=== PATIENT | female | born 1950 | race Caucasian/White ===

== ENCOUNTER 2016-06-23 06:06 | Inpatient (IN) ==
[2016-06-23] MEDS ORDERED: CeFAZolin Pre 3,000 MG/100 ML 3,000 MG/100 ML BAG IVPB ONE (06:42)
[2016-06-23] MEDS ORDERED: Lidocaine 1% 20 ML MDV ID ONE (06:42)
[2016-06-23] MEDS ORDERED: Albuterol 2.5 MG/3 ML NEBULIZER IH ONE (06:44)
[2016-06-23] MEDS ORDERED: Ringers Solution, Lactated 1,000 ML IVC SCH ×2 (06:45→08:30)
[2016-06-23] MEDS ORDERED: *HR* FentaNYL (PF) 100 MCG/2 ML VIAL ONE (07:24)
[2016-06-23] MEDS ORDERED: *HR* Propofol 200 MG/20 ML VIAL IVP ONE ×2 (07:25→07:26)
[2016-06-23] MEDS ORDERED: *HR* Midazolam HCl 2 MG/2 ML VIAL ONE (07:25)
--- NOTE | 2016-06-23 07:26 | Anesthesia Evaluation PreOp ---
Date of Encounter: 06/23/16 Time of Encounter: 07:23 - Past History Planned Operation: ACDF C$-6 Cardiac History: HTN Pulmonary History: Asthma INSPECTOR OF WEIGHTS AND MEASURES History: Denies Any Significant HX Other Medical History: Hepatic (HepA), Diabetes Type II, GERD, Other (BMI 48) Anesthesia History: No Prior Anesthetic Complications, Past Anesthesia (back sx , hysterectomy, LIH, elvira TKR, R breast, EGD) Alcohol Use: rarely Drug use: none Medications and Allergies Atenolol [Tenormin] 50 mg PO DAILY 06/23/16 [History] FLUoxetine HCl [Prozac] 40 mg PO DAILY 06/23/16 [History] Fluticasone Propionate Nasal [Flonase] 1 spray NS DAILY 06/23/16 [History] Gabapentin [Neurontin] 300 mg PO TID 06/23/16 [History] Lisinopril/Hydrochlorothiazide [Zestoretic 20-12.5 mg Tablet] 1 each PO DAILY [History] Loperamide [Imodium] 2 mg PO DAILY PRN 06/23/16 [History] Loratadine [Claritin] 10 mg PO DAILY 06/23/16 [History] Metformin HCl [Glucophage] 1,000 mg PO BID 06/23/16 [History] Nitrofurantoin (BID) [Macrobid] 100 mg PO DAILY 06/23/16 [History] Omeprazole [PriLOSEC] 20 mg PO DAILY 06/23/16 [History] Pravastatin Sodium [Pravachol] 20 mg PO DAILY 06/23/16 [History] Primidone [Mysoline] 50 mg PO HS 06/23/16 [History] Tiotropium [Spiriva] 18 mcg IH DAILY 06/23/16 [History] TraZODone 50 mg PO HS 06/23/16 [History] Allergies pentazocine [From Talwin] Allergy (Verified 06/23/16 06:34) Hypotension - Meds/Allergy Pre-op Review Medications Reviewed: Yes Allergies Reviewed: Yes Beta Blockers on Current Med List: Yes ( ) Anesthesia Results - Labs Laboratory Tests 06/14/16 12:08 PT 11.5 INR 1.1 APTT 30.8 - Imaging EKG: report reviewed (SR, probable old anterior IL) Anesthesia Exam O2 Sat Height 1.63 m Height 1.63 m Height 1.63 m Weight 127.459 kg Weight 127.459 kg Weight 127.459 kg O2 Sat by Pulse Oximetry 93 Vital Signs Temp Pulse Resp BP Pulse Ox 98.2 F 106 18 130/73 93 L 06/23/16 06:37 06/23/16 06:37 06/23/16 06:37 06/23/16 06:37 06/23/16 06:37 - HEENT Pupil (Motor): Pupils equal, EOMI Mallampati: III (neck short and thick secondary to obesity) Teeth: Normal Oral Opening: Greater than 3 - INSPECTOR OF WEIGHTS AND MEASURES LOC: Oriented INSPECTOR OF WEIGHTS AND MEASURES Motor: Normal RUE, Normal LUE, Normal RLE, Normal LLE, Normal Face INSPECTOR OF WEIGHTS AND MEASURES Sensory: Normal: RUE, LUE, RLE, LLE, Face - Cardiac Rhythm: Regular - Pulmonary Breath Sounds: bilateral Clear Respiratory Effort: Symmetrical Anesthesia Assess/Plan ASA Score: 3 (HTN, DM, asthma, BMI 48) Anesthetic Plan: General (GETA elective glidescope, r/b/a dsicussed, questions answered, consent obtained) Monitoring Plan: Standard Monitors Recovery Plan: PACU
[2016-06-23] MEDS ORDERED: *HR* Remifentanil 1 MG VIAL IVP ONE ×2 (07:33)
[2016-06-23] MEDS ORDERED: *HR* Succinylcholine 200 MG/10 ML VIAL IVP ONE (07:35)
[2016-06-23] MEDS ORDERED: Dexamethasone 4 MG/ML VIAL ONE (07:35)
[2016-06-23] MEDS ORDERED: Lidocaine -MPF 2% 2 ML VIAL ONE (07:35)
[2016-06-23] MEDS ORDERED: Ondansetron 4 MG/2 ML VIAL ONE (07:35)
[2016-06-23] MEDS ORDERED: *HR* Rocuronium Bromide 50 MG/5 ML VIAL ONE (07:35)
--- NOTE | 2016-06-23 07:39 | History & Physical Report ---
Date of Encounter: 06/23/16 Time of Encounter: 07:35 24 Hour HP Update - Instructions Instructions: If the History and Physical is less than 30 days old and was completed prior to A.M. admission and or procedure and has NOT been updated on calendar day of procedure please complete this update prior to performing procedure. - Update Patient reports changes in Medical Condition: No Changes in assessment/condition: No Changes in Medication: No Preop tests/diagnostics Reviewed: Yes Pre-Op MRSA Screen: Negative Surgery Remains Indicated: Yes Consent for Planned Operative Procedure(s) Verified: Yes - Pre-Operative Checklist Preoperative Checklist Indicated: No Prophylactic Antibiotic Ordered: Yes Home Medications Include Beta Alyssa: Yes Beta Alyssa Taken Today (Day of Surgery): No Beta Alyssa Taken Yesterday (Day Prior to Surgery): Yes Is VTE Prophylaxis Indicated?: Yes
[2016-06-23] MEDS ORDERED: *HR* Phenylephrine 10 MG/ML VIAL ONE (08:00)
[2016-06-23] MEDS ORDERED: *HR* Meperidine 25 MG/ML SYRINGE IVP PRN (08:27)
[2016-06-23] MEDS ORDERED: Ondansetron 4 MG/2 ML VIAL IVP ONE (08:27)
[2016-06-23] MEDS ORDERED: *HR* Labetalol 100 MG/20 ML MDV IVP PRN (08:27)
[2016-06-23] MEDS ORDERED: *HR* Promethazine 25 MG/ML VIAL IVP PRN (08:27)
[2016-06-23] MEDS ORDERED: Levalbuterol Neb 1.25 MG/3 ML IH ONE (10:00)
--- NOTE | 2016-06-23 10:26 | Orthopedic Operative Note ---
Date of procedure: 06/23/16 Pre-op diagnosis: Cervical stenosis, cervical radiculopathy, focal motor deficit Post-op diagnosis: same Operation/Findings: Anterior cervical decompression and fusion C4-C6:The patient was brought to the operating room and placed supine on the operating room table. Successful general endotracheal anesthesia intubation was performed. Neurophysiologic monitoring personnel placed leads on the upper and lower extremities as well as the cranium for EMG monitoring purposes. Appropriate baseline potentials were noted by the neurophysiologic monitoring staff. Flores catheter was placed prior to positioning. Compression boots and stockings were placed for deep vein thrombosis prophylaxis, Padding was also placed all bony prominences including the ulnar nerve near the medial epicondyles of the elbows were appropriately padded. Mild traction was placed on the bilateral shoulders and taped into place. Preoperative antibiotics were administered. The area from the mandible bilaterally to the upper thoraces was prepped and draped in the usual sterile fashion. A transverse incision was made at the level of the cricoid cartilage which is approximately 3 cm in length and extended from the midline of the cervical spine laterally towards the sternocleidomastoid muscle on the left. We then performed standard medial approach to the carotid sheath. Sponges were used to tease the fascial medial to the sternocleidomastoid muscle while carefully controlling and palpating the carotid artery. Using careful dissection we were able to get to the level of the anterior vertebral bodies and longus colli muscles. The spinal needle was placed at the appropriate C5-6 level, and intraoperative radiograph was obtained which was a cervical spine lateral radiograph. The needle and radiograph confirmed we were at the correct C5-6 operative level. We further exposed this level by using Bovie cautery under the medial edge of the longus colli muscles to allow them to be retracted approximately 2 mm laterally on each side. An 11 blade was used to perform anterior discectomy at the appropriate C5-6 level after an initial annulotomy of the anterior longitudinal ligament and annulus was performed. Further disc material was removed with pituitary Rongeurs. Subsequently, Synthes pins were placed at the C5 and C6 vertebral bodies respectively to provide distraction. We then used a Trimline cervical retractor which was placed in both medial and lateral as well as inferior superior direction to allow full visualization of the appropriate disc and vertebral bodies. The Leica microscope was brought to the field and the remainder of the procedure was performed under the guidance of this microscope. Using pituitary rongeurs and small curettes, various micro-instruments, a full discectomy was performed at the appropriate C5-6 level. The posterior longitudinal ligament was encountered and appeared partially calcified. A portion of this ligament was removed. After complete and thorough discectomy and removal of spondylitic material was performed the endplates of the C5 and C6 vertebral bodies were prepared with a bur until allow bleeding of cancellous bone. A 8mm trial graft was evaluated and appeared to fit quite well within the excised C5-6 disc space. A cortico-cancellous allograft of 8 mm was utilized, carefully tapped into place within the excised disc space with the aid of a bone tamp. It was seated approximately 2 mm from the anterior edge of the cortex of the adjacent C5 and C6 vertebral bodies. We then turned our attention to the C4-5 level where a similar series of procedures was performed including discectomy, removal of spondylitic material, end plate preparation, and trial graftnig. A 7mmmm trial fit well within the C4-5 disc space. A 7mm allograft was then placed at C4-5. A 42.5 mm cervical plate was then placed on the anterior aspect of the C4, C5, and C6 vertebral bodies. The plate was placed in the midline position after drilling six 13 mm self tapping screws and inserting them. They were locked in place using standard Venture plate maneuvers. At this point a lateral radiograph of the cervical spine was obtained and showed satisfactory position of the graft and plate. The wound was copiously irrigated and bleeders encountered were cauterized using Bovie cautery. Platysma was closed with interrupted 2-0 Vicryl sutures. Running 3-0 Monocryl suture was used for skin closure. Sterile dressing was placed over the neck wound. A cervical collar was placed. The patient was transferred to a hospital bed and extubated. The patient was noted to be fully motor and sensory intact in the recovery room at the end of the procedure. The medications. All sponge instrument and needle counts were correct at the end of the procedure. Anesthesia: GETA Surgeon: Angel De Guzman Jr Estimated blood loss (cc): 50 Condition: stable Disposition: PACU
[2016-06-23] MEDS: *HR* HYDROmorphone (PF) 1 MG/ML SYRINGE IVP PRN ×2 (10:59→11:28)
--- NOTE | 2016-06-23 12:20 | Anesthesia Evaluation Post Op ---
Date of Encounter: 06/23/16 Time of Encounter: 12:05 - Vital Signs Vital Signs: Vital Signs/O2 Sat/Glucose, Most Current Temp Pulse Resp BP Pulse Ox 06/23/16 12:10 97.9 F 100 20 154/83 98 06/23/16 11:55 97.9 F 101 20 147/80 93 L 06/23/16 11:45 101 20 160/91 93 L 06/23/16 11:35 97.6 F 102 20 158/85 93 L 06/23/16 11:25 104 20 172/97 93 L 06/23/16 11:15 100 20 175/96 93 L 06/23/16 11:05 97.7 F 102 20 163/102 97 06/23/16 10:55 102 20 169/93 95 06/23/16 10:45 109 20 160/92 97 06/23/16 10:35 97.8 F 103 24 137/88 95 - Lungs Lungs: Clear Ascult./Percussion - Airway Airway: Non-obstructed - Cardiovascular Regular Rate - Mental Status Mental Status: Alert & Oriented, Answers Appropriately - Pain Pain Scale: 0 - Nausea Vomiting Nausea Vomiting: Not Present - Hydration Hydration: Ice chips - Discharge PostOp Status: Transfer Patient to floor
[2016-06-23] MEDS: *HR* Metformin 500 MG TABLET PO SCH (17:20)
[2016-06-23] MEDS ORDERED: *HR* Morphine 2 MG/ML SYRINGE IVP PRN (18:12)
[2016-06-23] MEDS: *HR* OxyCODONE Immed Rel 5 MG TABLET PO PRN (18:19)
[2016-06-23] MEDS: ceFAZolin 3,000 MG in D5% in Water 100 ML IVPB SCH (20:23)
[2016-06-23] MEDS: Primidone 50 MG TABLET PO SCH (20:24)
[2016-06-23] MEDS: traZODone 50 MG TABLET PO SCH (20:24)
[2016-06-23] MEDS: Lisinopril-HCTZ 20-12.5mg TABLET PO SCH (20:24)
[2016-06-24] MEDS ORDERED: ceFAZolin 2,000 MG in D5% in Water 100 ML IVPB SCH
[2016-06-24] MEDS: ceFAZolin 3,000 MG in D5% in Water 100 ML IVPB SCH (03:05)
[2016-06-24] MEDS: Tiotropium 18 MCG inhalation IH SCH (08:25)
[2016-06-24] MEDS: *HR* Metformin 500 MG TABLET PO SCH ×2 (08:36→16:29)
[2016-06-24] MEDS: Nitrofurantoin (BID) 100 MG CAPSULE PO SCH (08:37)
[2016-06-24] MEDS: FLUoxetine 20 MG CAPSULE PO SCH (08:37)
[2016-06-24] MEDS: Lisinopril-HCTZ 20-12.5mg TABLET PO SCH ×2 (08:37→20:57)
[2016-06-24] MEDS: Loratadine 10 MG TABLET PO SCH (08:37)
[2016-06-24] MEDS: Fluticasone Propionate Nasal 50 MCG/SPRAY BOTTLE NS SCH (08:38)
[2016-06-24] MEDS ORDERED: Ringers Solution, Lactated 1,000 ML ONE (11:45)
[2016-06-24] MEDS: Ringers Solution, Lactated 1,000 ML IVC SCH (12:14)
--- NOTE | 2016-06-24 13:04 | Spine Progress Note ---
Date of Encounter: 06/24/16 Time of Encounter: 13:01 Subjective Principal diagnosis: Cervical stenosis, cervical radiculopathy Interval history: The patient is without complaints. Poorly mobilizing. Afebrile vital signs are stable. Incision is clean dry and intact. Neurovascularly intact with regard to bilateral upper extremities. Fires all upper and lower extremity motor groups. Assessment :stable. Plan mobilize ,continue analgesics, discharge planning, obtain x ray, may need rehabilitation. Objective Vital signs: Vital Signs Temp Pulse Resp BP Pulse Ox 06/24/16 12:15 92/52 06/24/16 11:12 97.8 F 87 18 93 L 06/24/16 08:25 11 96 06/24/16 07:41 99.6 F 102 18 107/68 90 L 06/24/16 01:20 93 L 06/24/16 00:00 97.7 F 99 17 124/67 93 L 06/23/16 20:00 97.9 F 95 18 147/79 92 L 06/23/16 15:14 97.7 F 93 16 130/80 91 L 06/23/16 13:30 98.5 F 98 16 136/72 95 Intake and Output 06/23/16 06/24/16 06/24/16 23:59 07:59 15:59 Intake Total 400 / 400 20 / 20 Output Total 500 / 500 950 / 950 Balance -100 / -100 -950 / -950 20 / 20 Intake: IV Fluids 100 / 100 Ancef 3,000 MG In 100 / 100 Dextrose 5% 100 ML @ 200 mls/hr IVPB Q8H [facility] Rx#: [id number] Oral 300 / 300 20 / 20 Output: Urine 950 / 950 Urethral (Flores) 950 / 950 Catheter 500 / 500 Other: Blood Glucose* 132 174 137 - Labs Labs: Abnormal lab results POC Glucose 132 (58-89) H 06/23/16 20:26 Consult Discharge Plan - Plan Referrals: Elvi Chester CNP [Primary Care Provider] -
[2016-06-24] MEDS: Primidone 50 MG TABLET PO SCH (20:56)
[2016-06-24] MEDS: traZODone 50 MG TABLET PO SCH (20:57)
[2016-06-24] MEDS: *HR* OxyCODONE Immed Rel 5 MG TABLET PO PRN (21:04)
[2016-06-25] MEDS: Tiotropium 18 MCG inhalation IH SCH (07:34)
[2016-06-25] MEDS: FLUoxetine 20 MG CAPSULE PO SCH (07:51)
[2016-06-25] MEDS: Loratadine 10 MG TABLET PO SCH (07:52)
[2016-06-25] MEDS: Lisinopril-HCTZ 20-12.5mg TABLET PO SCH ×2 (07:52→21:34)
[2016-06-25] MEDS: Nitrofurantoin (BID) 100 MG CAPSULE PO SCH (07:52)
[2016-06-25] MEDS: *HR* Metformin 500 MG TABLET PO SCH ×2 (07:52→18:55)
[2016-06-25] MEDS: Fluticasone Propionate Nasal 50 MCG/SPRAY BOTTLE NS SCH (07:54)
[2016-06-25] MEDS: *HR* OxyCODONE Immed Rel 5 MG TABLET PO PRN ×2 (11:19→21:53)
[2016-06-25] MEDS: Ringers Solution, Lactated 1,000 ML IVC SCH ×2 (12:36)
--- NOTE | 2016-06-25 21:06 | Spine Progress Note ---
Date of Encounter: 06/25/16 Time of Encounter: 21:04 Subjective Principal diagnosis: Cervical stenosis, cervical radiculopathy Interval history: The patient is without complaints except difficulty moving left hand. Having a reasonable amount of neck pain requiring intravenous narcotics. Per nursing staff had some ptosis earlier. Poorly mobilizing. Afebrile vital signs are stable. Incision is clean dry and intact. Neurovascularly intact with regard to bilateral upper extremities. Fires all upper and lower extremity motor groups. Assessment :stable. Plan mobilize ,continue analgesics, discharge planning, obtain CT scan to evaluate potential neurologic complaints.. Objective Vital signs: Vital Signs Temp Pulse Resp BP Pulse Ox 06/25/16 20:36 99.4 F 89 22 134/66 93 L 06/25/16 16:19 98.6 F 73 16 124/59 97 06/25/16 11:30 98.3 F 73 16 132/68 94 L 06/25/16 07:34 18 95 06/25/16 07:21 98.7 F 67 18 139/64 94 L 06/25/16 00:00 98.9 F 80 17 117/64 95 06/24/16 21:10 94 L Intake and Output 06/25/16 06/25/16 06/25/16 07:59 15:59 23:59 Intake Total 849 / 849 151 / 151 350 / 350 Output Total 250 / 250 Balance 849 / 849 -99 / -99 350 / 350 Intake: IV Fluids 849 / 849 151 / 151 350 / 350 Lactated Ringers 1,000 ML 849 / 849 151 / 151 350 / 350 @ 100 mls/hr IVC .Q10H [facility] Rx#:[id number] Output: Urine 250 / 250 Other: # Voids 2 Blood Glucose* 140 132 150 - Labs Labs: Abnormal lab results POC Glucose 150 (58-89) H 06/25/16 20:41 Consult Discharge Plan - Plan Referrals: Elvi Chester CNP [Primary Care Provider] -
[2016-06-25] MEDS: traZODone 50 MG TABLET PO SCH (21:34)
[2016-06-25] MEDS: Primidone 50 MG TABLET PO SCH (21:34)
[2016-06-26] MEDS: Fluticasone Propionate Nasal 50 MCG/SPRAY BOTTLE NS SCH (08:21)
[2016-06-26] MEDS: FLUoxetine 20 MG CAPSULE PO SCH (08:22)
[2016-06-26] MEDS: *HR* Metformin 500 MG TABLET PO SCH ×2 (08:22→16:34)
[2016-06-26] MEDS: Lisinopril-HCTZ 20-12.5mg TABLET PO SCH ×2 (08:22→20:07)
[2016-06-26] MEDS: Loratadine 10 MG TABLET PO SCH (08:23)
[2016-06-26] MEDS: Nitrofurantoin (BID) 100 MG CAPSULE PO SCH (08:23)
[2016-06-26] MEDS: Tiotropium 18 MCG inhalation IH SCH (10:32)
[2016-06-26] MEDS: *HR* OxyCODONE Immed Rel 5 MG TABLET PO PRN (10:34)
--- NOTE | 2016-06-26 17:04 | Spine Progress Note ---
Date of Encounter: 06/26/16 Time of Encounter: 17:02 Subjective Principal diagnosis: Cervical stenosis, cervical radiculopathy Interval history: The patient is without complaints except difficulty moving left hand which has improved. Poorly mobilizing. Afebrile vital signs are stable. Incision is clean dry and intact. Neurovascularly intact with regard to bilateral upper extremities. Fires all upper and lower extremity motor groups. Assessment : stable. Plan mobilize ,continue analgesics, discharge planning, CT scan negative for CVA. .. Objective Vital signs: Vital Signs Temp Pulse Resp BP Pulse Ox 06/26/16 16:00 97.7 F 80 16 163/88 95 06/26/16 08:36 95 06/26/16 06:50 98.2 F 82 18 140/81 94 L 06/25/16 23:04 98.9 F 85 20 151/80 94 L 06/25/16 20:36 99.4 F 89 22 134/66 93 L Intake and Output 06/26/16 06/26/16 06/26/16 07:59 15:59 23:59 Intake Total 0 / 0 Output Total 645 / 645 200 / 200 Balance -645 / -645 -200 / -200 Intake: Oral 0 / 0 Output: Urine 645 / 645 200 / 200 Other: # Voids 1 1 Blood Glucose* 125 126 101 - Labs Labs: Abnormal lab results POC Glucose 126 (58-89) H 06/26/16 12:05 Consult Discharge Plan - Plan Referrals: Elvi Chester DIESEL POWER MECHANIC [Primary Care Provider] -
[2016-06-26] MEDS: traZODone 50 MG TABLET PO SCH (20:07)
[2016-06-26] MEDS: Primidone 50 MG TABLET PO SCH (20:07)
[2016-06-27] MEDS: FLUoxetine 20 MG CAPSULE PO SCH (07:45)
[2016-06-27] MEDS: Loratadine 10 MG TABLET PO SCH (07:45)
[2016-06-27] MEDS: Lisinopril-HCTZ 20-12.5mg TABLET PO SCH ×2 (07:46→21:31)
[2016-06-27] MEDS: Fluticasone Propionate Nasal 50 MCG/SPRAY BOTTLE NS SCH ×2 (07:46→08:07)
[2016-06-27] MEDS: *HR* Metformin 500 MG TABLET PO SCH ×2 (07:46→17:25)
[2016-06-27] MEDS: Nitrofurantoin (BID) 100 MG CAPSULE PO SCH (07:46)
[2016-06-27] MEDS: Tiotropium 18 MCG inhalation IH SCH (10:54)
[2016-06-27] MEDS ORDERED: Ondansetron 4 MG/2 ML VIAL IVP PRN (12:15)
--- NOTE | 2016-06-27 12:29 | Spine Progress Note ---
Date of Encounter: 06/27/16 Time of Encounter: 12:28 Subjective Principal diagnosis: Cervical stenosis, cervical radiculopathy Interval history: The patient is without complaints except difficulty moving left hand which has improved. Poorly mobilizing. Afebrile vital signs are stable. Incision is clean dry and intact. Neurovascularly intact with regard to bilateral upper extremities. Fires all upper and lower extremity motor groups. Assessment : stable. Plan mobilize ,continue analgesics, discharge planning. .. Objective Vital signs: Vital Signs Temp Pulse Resp BP Pulse Ox 06/27/16 11:41 98.3 F 80 18 168/70 94 L 06/27/16 10:33 76 16 166/75 91 L 06/27/16 09:00 82 190/119 06/27/16 08:00 94 L 06/27/16 07:23 189/100 06/27/16 00:00 99.0 F 89 19 175/100 95 06/26/16 20:00 99.4 F 90 19 180/109 94 L 06/26/16 16:00 97.7 F 80 16 163/88 95 Intake and Output 06/26/16 06/27/16 06/27/16 23:59 07:59 15:59 Intake Total 200 / 200 0 / 0 Output Total 600 / 600 125 / 125 0 / 0 Balance -400 / -400 -125 / -125 0 / 0 Intake: Oral 200 / 200 0 / 0 Output: Urine 600 / 600 125 / 125 0 / 0 Other: Stool Size Smear Small Stool Consistency soft loose Stool Characteristics Mucoid Stool Color Brown Brown Yellow # Voids 1 1 1 # Bowel Movements 1 1 Blood Glucose* 202 133 125 - Labs Labs: Abnormal lab results POC Glucose 125 (58-89) H 06/27/16 11:40 Consult Discharge Plan - Plan Referrals: Elvi Chester CNP [Primary Care Provider] -
[2016-06-27] MEDS: traZODone 50 MG TABLET PO SCH (21:31)
[2016-06-27] MEDS: Primidone 50 MG TABLET PO SCH (21:32)
[2016-06-27] MEDS: *HR* OxyCODONE Immed Rel 5 MG TABLET PO PRN (21:32)
[2016-06-28] MEDS: Fluticasone Propionate Nasal 50 MCG/SPRAY BOTTLE NS SCH (07:57)
[2016-06-28] MEDS: Lisinopril-HCTZ 20-12.5mg TABLET PO SCH (07:57)
[2016-06-28] MEDS: *HR* Metformin 500 MG TABLET PO SCH (07:57)
[2016-06-28] MEDS: FLUoxetine 20 MG CAPSULE PO SCH (07:57)
[2016-06-28] MEDS: Loratadine 10 MG TABLET PO SCH (07:57)
[2016-06-28] MEDS: Nitrofurantoin (BID) 100 MG CAPSULE PO SCH (07:57)
[2016-06-28] MEDS: Tiotropium 18 MCG inhalation IH SCH (08:23)
[2016-06-28] MEDS ORDERED: Ondansetron ODT 4 MG TAB.RAPDIS SL ONE (10:27)
[2016-06-28 11:31] VITALS: BP 170/81
--- NOTE | 2016-06-28 12:34 | Discharge Summary ---
Date of Encounter: 06/28/16 Time of Encounter: 12:32 - Discharge Diagnosis (1) Cervical stenosis of spinal canal Priority: Primary Status: Chronic (2) Cervical radiculopathy Priority: Secondary Status: Chronic - Discharge Medications Prescriptions: OxyCODONE Immed Rel [Roxicodone 5 MG] 5 mg PO Q4HR PRN #60 tablet PRN Reason: Pain Home Medications: Atenolol [Tenormin] 50 mg PO DAILY 06/23/16 [History] FLUoxetine HCl [Prozac] 40 mg PO DAILY 06/23/16 [History] Fluticasone Propionate Nasal [Flonase] 1 spray NS DAILY 06/23/16 [History] Lisinopril/Hydrochlorothiazide [Zestoretic 20-12.5 mg Tablet] 1 each PO BID [History] Loperamide [Imodium] 2 mg PO DAILY PRN 06/23/16 [History] Loratadine [Claritin] 10 mg PO DAILY 06/23/16 [History] Metformin HCl [Glucophage] 1,000 mg PO BID 06/23/16 [History] Nitrofurantoin (BID) [Macrobid] 100 mg PO DAILY 06/23/16 [History] Omeprazole [PriLOSEC] 20 mg PO DAILY 06/23/16 [History] Pravastatin Sodium [Pravachol] 20 mg PO DAILY 06/23/16 [History] Primidone [Mysoline] 50 mg PO HS 06/23/16 [History] Tiotropium [Spiriva] 18 mcg IH DAILY 06/23/16 [History] TraZODone 50 mg PO HS 06/23/16 [History] OxyCODONE Immed Rel [Roxicodone 5 MG] 5 mg PO Q4HR PRN #60 tablet 06/28/16 [Rx] Allergies/Adverse Reactions: Allergies pentazocine [From Talwin] Allergy (Verified 06/23/16 06:34) Hypotension Labs on day of discharge: Labs from last 24 hours 06/27/16 19:53 POC Glucose 126 H - Impressions ITS Impressions Cervical Spine X-Ray 06/23/16 00:00 IMPRESSION: Surgical probe present at the anterior margin of the C4/5 disc space. This was discussed with Dr. De Guzman on 06/23/2016 at 8:55 a.m.. D/ / 06/23/2016 09:21:42 Grant Meza MD / [facility] Interpreting Provider: Grant Meza MD Cervical Spine X-Ray 06/23/16 10:17 IMPRESSION: To the extent of visualization, the bones are in anatomic alignment with orthopedic hardware now in place anterior to the C4 and C5 vertebrae. D/ / 06/23/2016 11:10:49 Gonzalez Gamez MD / [email or web address] Interpreting Provider: Gonzalez Gamez MD Cervical Spine X-Ray 06/24/16 12:51 IMPRESSION: 1. Status post anterior fusion at C4 through C6 with associated significant prevertebral soft tissue swelling. No immediate complication. D/ / 06/24/2016 15:34:30 Teresa Roper MD / [facility] Interpreting Provider: Teresa Roper MD Head CT 06/25/16 16:50 IMPRESSION: No acute intracranial abnormality. D/ / 06/25/2016 18:19:07 Shelbie Rebollar MD / [facility] [email or web address] Interpreting Provider: Shelbie Rebollar MD Date of admission: 06/25/16 21:07 Primary care physician: Elvi Chester, Consults: 06/23/16 12:34 Consult to Pastoral Services [CONS] Routine Comment: Consult to Client Service Representative [CONS] Routine Reason for SW Consult: Financial concerns 06/24/16 11:41 Consult to Occupational Therapy [CONS] Routine Comment: Evaluate, develop and implement POC Consult to Physical Therapy [CONS] Routine Comment: Evaluate, develop and implement POC - Patient Status Disposition: Transfer SNF Condition: Good Functional capacity at discharge: uses cane/walker Overall status at discharge: patient is progressing back to baseline - Discharge Instructions Follow Up With: Elvi Chester CNP [Primary Care Provider] - - Diet and Activity Activity: as per physical therapy Diet: advance to your usual diet - Hospital Course Hospital course: Ms. Chung is a 66 year old female The patient had an uneventful postoperative course. She had some pain control issues and was pooly mobilizing which lengthened her postoperative stay. There was concern for CVA, but workup with head CT scan was negative. Progressed from intravenous analgesic needs to oral analgesic needs only. Remained neurovascularly intact and mobilized poorly. All intraoperative and/or postoperative radiographic studies were satisfactory. Patient is discharged with plan for inpatient rehabilitation and follow-up in 2 weeks post discharge on analgesic medication and patient's home medications. - Time Spent with Patient Total time spent providing and/or coordinating discharge services: - VTE Documentation of Mechanical Device: Intermittent pneumatic compression device
== END 2016-06-28 15:00 | DRG 472 ==
LOC: SAMDAY 06:06 → 3NENU 12:35
PROVIDERS: ADMIT Orthopaedic Surgery Orthopaedic Surgery of the Spine; ATTEND Orthopaedic Surgery Orthopaedic Surgery of the Spine

== ENCOUNTER 2017-07-04 06:15 | Inpatient (IN) ==
[~2017-07-04 06:15] MED LIST: Bacitracin 50,000 UNIT, Polymyxin B Sulfate 500,000 UNIT, Sodium Chloride IRRigation 1,... IR ONE
[2017-07-04] MEDS ORDERED: CeFAZolin Syr 3,000MG/30 ML 3,000 MG/30 ML SYRINGE IVPB ONE (06:33)
[2017-07-04] MEDS ORDERED: Lidocaine -MPF 1% 2 ML VIAL ID ONE (06:33)
[2017-07-04] MEDS ORDERED: Albuterol 2.5 MG/3 ML NEBULIZER IH ONE (06:33)
[2017-07-04] MEDS ORDERED: Ringers Solution, Lactated 1,000 ML IVC SCH ×2 (06:45→13:18)
--- NOTE | 2017-07-04 06:56 | Anesthesia Evaluation PreOp ---
Date of Encounter: 07/04/17 Time of Encounter: 06:40 - Past History Planned Operation: PLIF Cardiac History: HTN, Hyperlipidemia Pulmonary History: Asthma, MARIANELA Dx (MARIANELA by history, not on CPAP. Sleeps with HOB elevated.) ACCOUNTS PAYABLE ANALYST History: Denies Any Significant HX Other Medical History: Diabetes Type I, GERD Anesthesia History: Past Anesthesia (Hx of PONV) Alcohol Use: none Drug use: none Medications and Allergies Atenolol [Tenormin] 50 mg PO DAILY 06/23/16 [History] FLUoxetine HCl [Prozac] 40 mg PO DAILY 06/23/16 [History] Fluticasone Propionate Nasal [Flonase] 1 spray NS DAILY 06/23/16 [History] Lisinopril/Hydrochlorothiazide [Zestoretic 20-12.5 mg Tablet] 1 each PO BID [History] Loperamide [Imodium] 2 mg PO DAILY PRN 06/23/16 [History] Loratadine [Claritin] 10 mg PO DAILY 06/23/16 [History] Metformin HCl [Glucophage] 1,000 mg PO BID 06/23/16 [History] Nitrofurantoin (BID) [Macrobid] 100 mg PO DAILY 06/23/16 [History] Omeprazole [PriLOSEC] 20 mg PO DAILY 06/23/16 [History] Pravastatin Sodium [Pravachol] 20 mg PO DAILY 06/23/16 [History] Primidone [Mysoline] 50 mg PO HS 06/23/16 [History] Tiotropium [Spiriva] 18 mcg IH DAILY 06/23/16 [History] traZODone [TraZODone] 50 mg PO HS 06/23/16 [History] OxyCODONE Immed Rel [Roxicodone 5 MG] 5 mg PO Q4HR PRN #60 tablet 06/28/16 [Rx] 3 Allergy/AdvReac Type Severity Reaction Status Date / Time Banana Allergy See Verified 06/06/17 16:26 Comments pentazocine [From Davin] Allergy Anaphylaxis Verified 06/06/17 16:26 - Meds/Allergy Pre-op Review Medications Reviewed: Yes Allergies Reviewed: Yes Beta Blockers on Current Med List: Yes (0700) Anesthesia Results - Labs Laboratory Tests 10/17/17 02/26/18 02/26/18 08:43 16:44 16:44 Hgb 11.6 Hct 37.9 Plt Count 284 PT 12.2 H INR 1.1 APTT 33.1 Sodium Potassium Chloride Carbon Dioxide BUN Creatinine Glucose 119 H 06/06/17 16:44 Hgb Hct Plt Count PT INR APTT Sodium 140 Potassium 4.3 Chloride 100 Carbon Dioxide 32 H BUN 16 Creatinine 0.82 Glucose - Imaging EKG: image reviewed (normal sinus rhythm) Anesthesia Exam Selected Entries 07/04/17 06:35 Temperature 98.5 F Pulse Rate 86 Respiratory Rate 18 Blood Pressure 157/95 O2 Sat by Pulse Oximetry 94 Blood glucose: 116 Weight: 129 kg BMI 50 NPO (# of Hours): over 8 hours - HEENT Pupil (Motor): Pupils equal Mallampati: III Teeth: Normal Oral Opening: Greater than 3 (Had ACDF this past fall. Review of anesthesia record, patient underwent prolonged preoxygenation and then proceeded directly to glidescope following induction. Grade 2 view, cords well visualized. No difficulty.) - Cardiac Rhythm: Regular Murmur: None - Pulmonary Breath Sounds: bilateral Clear Respiratory Effort: Symmetrical Anesthesia Assess/Plan ASA Score: 3 Modified [place] Scale for Level of Consciousness: Cooperative, oriented, and tranquil Anesthetic Plan: General Monitoring Plan: Standard Monitors Recovery Plan: PACU (Discussed GA, risks. Agreed to proceed. Patient requests no Reglan and minimal "other drugs" because she had so much nausea and diarrhea with her last surgery.)
[2017-07-04] MEDS ORDERED: *HR* FentaNYL (PF) 100 MCG/2 ML VIAL ONE (07:16)
[2017-07-04] MEDS ORDERED: *HR* Midazolam HCl 2 MG/2 ML VIAL ONE (07:16)
[2017-07-04] MEDS ORDERED: Ondansetron 4 MG/2 ML VIAL ONE (07:16)
[2017-07-04] MEDS ORDERED: *HR* Succinylcholine 200 MG/10 ML VIAL IVP ONE (07:16)
[2017-07-04] MEDS ORDERED: *HR* Propofol 200 MG/20 ML VIAL IVP ONE (07:17)
[2017-07-04] MEDS ORDERED: *HR* Remifentanil 2 MG VIAL IVP ONE ×2 (07:18→10:08)
[2017-07-04] MEDS ORDERED: Lidocaine -MPF 4% 5 ML AMPUL ONE (07:25)
--- NOTE | 2017-07-04 07:40 | History & Physical Report ---
Date of Encounter: 07/04/17 Time of Encounter: 07:30 24 Hour HP Update - Instructions Instructions: If the History and Physical is less than 30 days old and was completed prior to A.M. admission and or procedure and has NOT been updated on calendar day of procedure please complete this update prior to performing procedure. - Update Patient reports changes in Medical Condition: No Changes in examination, assessment, or condition: No Changes in Medication: No Preop tests/diagnostics Reviewed: Yes Pre-Op MRSA Screen: Negative Surgery Remains Indicated: Yes Consent for Planned Operative Procedure(s) Verified: Yes - Pre-Operative Checklist Preoperative Checklist Indicated: No Prophylactic Antibiotic Ordered: Yes Home Medications Include Beta Alyssa: Yes Beta Alyssa Taken Today (Day of Surgery): No Beta Alyssa Taken Yesterday (Day Prior to Surgery): Yes Is VTE Prophylaxis Indicated?: Yes
[2017-07-04] MEDS ORDERED: EPHEDrine 50 MG/ML VIAL ONE (08:26)
[2017-07-04] MEDS ORDERED: *HR* PHENYLEPHRINE 1,000 MCG/10 ML SYRINGE IVP ONE (08:47)
[2017-07-04] MEDS ORDERED: *HR* Phenylephrine 10 MG/ML VIAL ONE (09:01)
--- NOTE | 2017-07-04 11:18 | Orthopedic Operative Note ---
Date of procedure: 07/04/17 Pre-op diagnosis: Spondylolisthesis L4-L5, lumbar stenosis, history of laminectomy Post-op diagnosis: same Operation/Findings: Posterior lumbar interbody fusion L4-L5: The patient successfully underwent general endotracheal anesthesia. The patient was given antibiotics prior to the start of the procedure. Compression boots and stockings were used for deep vein thrombosis prophylaxis. A Flores catheter was placed. Leads for neuro monitoring were placed on the upper and lower extremities. This included the cranium. The neuro monitoring personnel confirmed there were satisfactory readings prior to the start of the procedure. The patient was turned prone on the Brian table. The back was prepped and draped in the usual sterile fashion. An incision was was marked and centered over the involved L4-L5 levels in the mid line. The incision was deepened through the lumbar fascia. Bovie cautery and Morse elevators were used to reflect the paraspinal musculature at the lateral extent of the transverse processes of the involved L4 and L5 levels. Freda clamps were placed over the L4 and L5 spinous processes. An intraoperative lateral fluoroscopy graft was obtained. A conversation was held between the surgeon and radiologist and both confirmed we had the correct operative levels. We then placed pedicle screws in standard fashion with the aid of fluoroscopy and anatomic landmarks. Briefly a starter awl was used. A gearshift was subsequently used to enter the pilot teacher hole via a transpedicular route into the vertebral body. The pilot teacher hole was tapped with an undersized instrument, and subsequently fur 6.5 x 40 mm pedicle screws were placed bilaterally at the indicated L4 and L5 levels. The screws were tested with the aid of the neurologic monitoring staff via pedicle screw stimulation. All reading suggested there was no significant cortical wall breech. The screws were also evaluated fluoro- graphically and appeared to be in satisfactory position. We then turned our attention to the decompression portion of the procedure. We removed the supraspinous and interspinous ligaments and subsequently the insertion of the ligamentum flavum on the undersurface of the proximal L4 lamina was dislodged with a curette. We then removed the ligamentum flavum as well as undercut the L4-5 facets at this level to decompress the lateral recesses. We also performed a L4 laminectomy. There was abundant amount of scar tissue around the thecal sac which was carefully mobilized. After the decompression which was over and above that which was required to place the interbody graft, the foramen and traversing roots at this L4-L5 level were found to be free and patent. We also took part of the medial facet in order to aid in the decompression. We then protected the neural elements including the thecal sac and traversing nerve root on the right with a dural retractor. We made an annulotomy into the L4-L5 disc space and then removed disc material using Pituitary instruments. We trialed various size grafts after the endplates were prepared for graft insertion. A 10 x 26 enter body graft fit well within the L4-L5 disc space. We obtained some bone from the right posterior superior iliac spine through us a separate incision and combined with this with the bone which we had saved from the laminectomy portion of the procedure. This autograft bone was first placed in the anterior portion of the L4-L5 disc space and additional bone was placed within the interbody graft spacer. We then placed the interbody graft spacer obliquely across the L4-L5 disc space towards the midline while protecting the neural elements with a root retractor. When the graft was found to be in satisfactory position the aircraft systems technician was removed. We then copiously irrigated the wound. We then decorticated the L4 and L5 transverse processes as well as the facet joints of the involved L4-L5 levels to aid in the posterolateral fusion. We placed autograft bone in the lateral gutters over these regions. We then placed rods within the screw heads of the involved levels and first locked the distal screws and then subsequently locked the proximal screws so as to improve and reduce the spondylolisthesis previously seen. We then closed the wound in layers with 1 Vicryl for the fascia, 2-0 Vicryl. Subcutaneous tissue, and Dermabond was used for skin closure. Sterile dressings were placed over the wound. The patient was turned supine on a hospital bed and extubated. All sponge instruments and needle counts were correct at the end of the procedure. The patient tolerated the procedure well without complications. Anesthesia: GETA Surgeon: Angel De Guzman Jr Was there an reading assistant present: No Estimated blood loss (cc): 150 Specimen: none Condition: stable Disposition: PACU
[2017-07-04] MEDS ORDERED: *HR* Morphine 2 MG/ML SYRINGE IVP ONE (11:36)
[2017-07-04] MEDS ORDERED: Acetaminophen IV 1,000 MG/100 ML INFUS..BTL IVPB ONE (11:36)
[2017-07-04] MEDS: *HR* Morphine 2 MG/ML SYRINGE IVP SCH ×3 (11:43→11:53)
--- NOTE | 2017-07-04 12:14 | Anesthesia Evaluation Post Op ---
Date of Encounter: 07/04/17 Time of Encounter: 12:10 - Vital Signs Vital Signs: Selected Entries 07/04/17 11:28 07/04/17 11:38 Temperature 98.5 F Pulse Rate 87 Respiratory Rate 18 Blood Pressure 127/108 O2 Sat by Pulse Oximetry 97 - Lungs Lungs: Clear Ascult./Percussion - Airway Airway: Non-obstructed - Cardiovascular Regular Rate - Mental Status Mental Status: Alert & Oriented, Answers Appropriately (sleeping soundly, arousable) - Nausea Vomiting Nausea Vomiting: Not Present - Hydration Hydration: NPO, Flores catheter - Discharge PostOp Status: Transfer Patient to floor
[2017-07-04] MEDS ORDERED: Ondansetron 4 MG/2 ML VIAL IVP PRN (13:18)
[2017-07-04] MEDS ORDERED: Naloxone 0.4 MG/ML INJ IVP PRN (13:18)
[2017-07-04] MEDS ORDERED: *HR* OxyCODONE Immed Rel 5 MG TABLET PO SCH (13:18)
[2017-07-04] MEDS: *HR* HYDROcodone/Acet 5/325 mg TABLET PO SCH ×2 (15:50→18:24)
[2017-07-04] MEDS ORDERED: *HR* HYDROcodone/Acet 5/325 mg TABLET PO PRN (16:30)
[2017-07-04] MEDS ORDERED: Primidone 50 MG TABLET PO SCH (21:00)
[2017-07-04] MEDS: Lisinopril-HCTZ 20-12.5mg TABLET PO SCH (21:02)
[2017-07-04] MEDS: *HR* HYDROcodone/Acet 5/325 mg TABLET PO PRN (21:02)
[2017-07-04] MEDS: traZODone 50 MG TABLET PO SCH (21:02)
[2017-07-05] MEDS: CeFAZolin Premix DUPLEX 2,000 MG/50 ML BAG IVPB SCH ×2 (00:08→08:06)
[2017-07-05 07:39] LABS: Basophils % 0.2 %; Eosinophils # 0.1 K/mcL (0.0-0.6); Eosinophils % 1.1 %; Hematocrit 33.3 % (35.3-44.9); Hemoglobin 9.8 g/dL (11.5-15.4); Immature Granulocytes % 0.4 % (0-4); Lymphocytes # 1.7 K/mcL (0.6-4.6); Lymphocytes % 14.8 %; Mean Corpuscular HGB Conc 29.4 g/dL (31.6-35.5); Mean Corpuscular Volume 91.7 fL (83.0-100.0); Mean Platelet Volume 9.4 fL (9.4-12.4); Monocytes # 1.1 K/mcL (0.0-1.3); Monocytes % 9.2 %; Neutrophils # 8.7 K/mcL (1.6-8.9); Platelet Count 209 K/mcL (140-400); Red Blood Count 3.63 M/mcL (3.82-4.97); Red Cell Distribution Width 14.6 % (11.5-14.5); Segmented Neutrophils % 74.3 %
[2017-07-05] MEDS: Tiotropium 18 MCG inhalation IH SCH (07:48)
[2017-07-05 07:58] LABS: BUN/Creatinine Ratio 19 (6-26); Blood Urea Nitrogen 19 mg/dL (8-23); Calcium 8.9 mg/dL (8.6-10.3); Carbon Dioxide 31 mEq/L (23-29); Chloride 101 mEq/L (98-107); Glucose 128 mg/dL (70-105); Osmolality,Calculated 288 (280-300); Potassium 4.4 mEq/L (3.5-5.1); Sodium 137 mEq/L (136-145); eGFR For African Americans > 60 (> 60); eGFR For Non-African Americans 55 (> 60)
[2017-07-05] MEDS: Multivit/Ca/Min/Fe/FA 1 TAB TABLET PO SCH (08:07)
[2017-07-05] MEDS: *HR* HYDROcodone/Acet 5/325 mg TABLET PO PRN ×2 (08:07→12:00)
[2017-07-05] MEDS: FLUoxetine 20 MG CAPSULE PO SCH (08:07)
[2017-07-05] MEDS: Lisinopril-HCTZ 20-12.5mg TABLET PO SCH ×2 (08:08→21:00)
[2017-07-05] MEDS: Loratadine 10 MG TABLET PO SCH (08:12)
[2017-07-05] MEDS ORDERED: Famotidine 20 MG TABLET PO SCH (09:00)
[2017-07-05] MEDS ORDERED: *HR* Metformin 500 MG TABLET PO SCH (09:00)
[2017-07-05] MEDS ORDERED: amLODIPine 5 MG TABLET PO SCH (09:00)
--- NOTE | 2017-07-05 13:01 | Spine Progress Note ---
Date of Encounter: 07/05/17 Time of Encounter: 13:00 Subjective Principal diagnosis: Status post lumbar fusion, spondylolisthesis Interval history: The patient is without complaints. Afebrile vital signs are stable. Dressing is clean dry and intact. Neurovascularly intact with regard to bilateral lower extremities. Fires all upper and lower extremity motor groups. Assessment : stable. Plan mobilize ,continue analgesics, discharge planning. Objective Vital signs: Vital Signs Temp Pulse Resp BP Pulse Ox 07/05/17 11:40 97.6 F 56 18 103/66 98 07/05/17 07:48 16 98 07/05/17 06:30 98.3 F 64 18 127/68 95 07/05/17 04:06 97.8 F 72 18 98/53 94 07/05/17 00:05 98.6 F 72 18 108/68 94 07/04/17 19:57 98.7 F 72 18 116/71 94 07/04/17 15:53 98.8 F 71 16 130/75 93 07/04/17 15:20 97.6 F 76 16 126/78 95 07/04/17 13:58 98.2 F 69 14 128/80 93 07/04/17 13:10 98.1 F 78 16 127/84 96 Intake and Output 07/04/17 07/05/17 07/05/17 23:59 07:59 15:59 Intake Total 960 / 960 290 / 290 240 / 240 Output Total 0 / 0 425 / 425 Balance 960 / 960 -135 / -135 240 / 240 Intake: IV Fluids 50 / 50 Ancef Premix DUPLEX 2,000 mg In 50 / 50 50 ml @ 100 mls/hr IVPB Q8H [facility] Rx#:[id number] Oral 960 / 960 240 / 240 240 / 240 Output: Catheter 0 / 0 425 / 425 Other: Meal Breakfast Percent of Meal Consumed 55% Blood Glucose* 147 126 105 - Labs CBC & BMP: 07/05/17 04:00 07/05/17 04:00 Labs: Abnormal lab results WBC 11.7 K/mcL (4.3-11.1) H 07/05/17 04:00 RBC 3.63 M/mcL (3.82-4.97) L 07/05/17 04:00 Hgb 9.8 g/dL (11.5-15.4) L 07/05/17 04:00 Hct 33.3 % (35.3-44.9) L 07/05/17 04:00 MCH 27.0 pg (28.0-33.3) L 07/05/17 04:00 MCHC 29.4 g/dL (31.6-35.5) L 07/05/17 04:00 RDW 14.6 % (11.5-14.5) H 07/05/17 04:00 Carbon Dioxide 31 mEq/L (23-29) H 07/05/17 04:00 Est GFR (Non-Af Amer) 55 (> 60) L 07/05/17 04:00 Glucose 128 mg/dL (70-105) H 07/05/17 04:00 POC Glucose 147 (58-89) H 07/04/17 20:31 Consult Discharge Plan - Plan Referrals: Elvi Chester [Primary Care Provider] -
[2017-07-05] MEDS: Primidone 50 MG TABLET PO SCH (16:01)
[2017-07-05] MEDS: *HR* Metformin 500 MG TABLET PO SCH (16:02)
[2017-07-05] MEDS: traZODone 50 MG TABLET PO SCH (21:00)
[2017-07-05] MEDS: amLODIPine 5 MG TABLET PO SCH (21:01)
[2017-07-06] MEDS: Acetaminophen 325 MG TABLET PO PRN ×2 (00:09→16:29)
[2017-07-06] MEDS: *HR* HYDROcodone/Acet 5/325 mg TABLET PO PRN (06:44)
[2017-07-06] MEDS: Lisinopril-HCTZ 20-12.5mg TABLET PO SCH ×2 (07:37→20:42)
[2017-07-06] MEDS: Multivit/Ca/Min/Fe/FA 1 TAB TABLET PO SCH (07:37)
[2017-07-06] MEDS: FLUoxetine 20 MG CAPSULE PO SCH (07:37)
--- NOTE | 2017-07-06 10:13 | Spine Progress Note ---
Date of Encounter: 07/06/17 Time of Encounter: 10:13 Subjective Principal diagnosis: Status post lumbar fusion, spondylolisthesis Interval history: The patient is without complaints. Has had some difficulty voiding and required straight cathetering 1 last night. Afebrile vital signs are stable. Dressing is clean dry and intact. Neurovascularly intact with regard to bilateral lower extremities. Fires all upper and lower extremity motor groups. Assessment :stable. Plan mobilize ,continue analgesics, discharge planning. Likely to rehabilitation in 2 days. Objective Vital signs: Vital Signs Temp Pulse Resp BP Pulse Ox 07/06/17 06:25 98.7 F 78 18 112/67 96 07/06/17 03:45 99.9 F H 74 18 108/65 95 07/06/17 00:22 98.6 F 71 18 114/64 98 07/05/17 19:37 98.3 F 64 18 104/65 93 07/05/17 15:53 97.4 F L 60 20 98/66 94 07/05/17 11:40 97.6 F 56 18 103/66 98 Intake and Output 07/05/17 07/06/17 07/06/17 23:59 07:59 15:59 Intake Total 120 / 120 0 / 0 Output Total 200 / 200 275 / 275 Balance -80 / -80 -275 / -275 Intake: Oral 120 / 120 0 / 0 Output: Urine 0 / 0 0 / 0 Straight Cath 200 / 200 275 / 275 Other: Blood Glucose* 137 - Labs CBC & BMP: 07/05/17 04:00 07/05/17 04:00 Labs: Abnormal lab results WBC 11.7 K/mcL (4.3-11.1) H 07/05/17 04:00 RBC 3.63 M/mcL (3.82-4.97) L 07/05/17 04:00 Hgb 9.8 g/dL (11.5-15.4) L 07/05/17 04:00 Hct 33.3 % (35.3-44.9) L 07/05/17 04:00 MCH 27.0 pg (28.0-33.3) L 07/05/17 04:00 MCHC 29.4 g/dL (31.6-35.5) L 07/05/17 04:00 RDW 14.6 % (11.5-14.5) H 07/05/17 04:00 Carbon Dioxide 31 mEq/L (23-29) H 07/05/17 04:00 Est GFR (Non-Af Amer) 55 (> 60) L 07/05/17 04:00 Glucose 128 mg/dL (70-105) H 07/05/17 04:00 POC Glucose 133 (58-89) H 07/05/17 16:01 Consult Discharge Plan - Plan Referrals: Elvi Chester [Primary Care Provider] -
[2017-07-06] MEDS: Tiotropium 18 MCG inhalation IH SCH (11:27)
[2017-07-06] MEDS: Loratadine 10 MG TABLET PO SCH (11:41)
[2017-07-06] MEDS: *HR* Metformin 500 MG TABLET PO SCH (16:30)
[2017-07-06] MEDS: Primidone 50 MG TABLET PO SCH (16:31)
[2017-07-06] MEDS: amLODIPine 5 MG TABLET PO SCH (20:41)
[2017-07-06] MEDS: traZODone 50 MG TABLET PO SCH (20:42)
[2017-07-07] MEDS: Multivit/Ca/Min/Fe/FA 1 TAB TABLET PO SCH (07:40)
[2017-07-07] MEDS: FLUoxetine 20 MG CAPSULE PO SCH (07:40)
[2017-07-07] MEDS: Lisinopril-HCTZ 20-12.5mg TABLET PO SCH (07:40)
[2017-07-07] MEDS: Loratadine 10 MG TABLET PO SCH (07:41)
[2017-07-07 11:29] VITALS: BP 127/64
[2017-07-07] MEDS: Tiotropium 18 MCG inhalation IH SCH (12:30)
--- NOTE | 2017-07-07 12:53 | Discharge Summary ---
- NOTES TO OUTPATIENT PROVIDER Notes to Outpatient Provider: Follow-up in 2 weeks and spine Center Orders not resulted at time of discharge: Pending orders 07/04/17 08:30 XR fluoroscopy <1 hr [XR] Routine Date of Encounter: 07/07/17 Time of Encounter: 12:51 - Discharge Diagnosis (1) Spondylolisthesis at L4-L5 level Priority: Primary Status: Chronic (2) Lumbar stenosis without neurogenic claudication Priority: Secondary Status: Chronic (3) Lumbar radiculopathy Priority: Secondary Status: Chronic - Hospital Course Hospital course: Ms. Chung is a 67 year old female The patient had an uneventful postoperative course. Progressed from intravenous analgesic needs to oral analgesic needs only. Remained neurovascularly intact and mobilized satisfactorily. All intraoperative and/or postoperative radiographic studies were satisfactory. Patient is discharged with plan for rehabilitation and follow-up in 2 weeks post discharge on analgesic medication and patient's home medications. - Time Spent with Patient Total time spent providing and/or coordinating discharge services: - Discharge Medications Prescriptions: HYDROcodone/Acet 5/325 mg [[place] 5-325 mg] 1 tab PO Q4HR PRN 7 Days #40 tablet PRN Reason: moderate pain Home Medications: Atenolol [Tenormin] 50 mg PO DAILY 06/23/16 [History] FLUoxetine HCl [Prozac] 60 mg PO DAILY 06/23/16 [History] Lisinopril/Hydrochlorothiazide [Zestoretic 20-12.5 mg Tablet] 1 tab PO BID 06/23 [History] Loratadine [Claritin] 10 mg PO DAILY 06/23/16 [History] Metformin HCl [Glucophage] 1,000 mg PO DAILY 06/23/16 [History] Pravastatin Sodium [Pravachol] 20 mg PO DAILY 06/23/16 [History] Primidone [Mysoline] 50 mg PO HS 06/23/16 [History] Tiotropium [Spiriva] 18 mcg IH DAILY 06/23/16 [History] traZODone [TraZODone] 50 mg PO HS 06/23/16 [History] Amlodipine Besylate 10 mg PO DAILY 07/04/17 [History] Dicyclomine [Bentyl] 20 mg PO BID 07/04/17 [History] Multivit-Min/FA/Herbal No.245 [Alive Women's Gummy Vitamins] 1 each PO DAILY [History] Naproxen Sodium [Aleve] 220 mg PO DAILY 07/04/17 [History] Ranitidine HCl [Zantac] 300 mg PO DAILY 07/04/17 [History] Tramadol HCl [Ultram] 50 mg PO HS PRN 07/04/17 [History] HYDROcodone/Acet 5/325 mg [[place] 5-325 mg] 1 tab PO Q4HR PRN 7 Days #40 tablet 07/07/17 [Rx] Allergies/Adverse Reactions: 3 Allergy/AdvReac Type Severity Reaction Status Date / Time Banana Allergy See Verified 06/06/17 16:26 Comments pentazocine [From [place]win] Allergy Anaphylaxis Verified 06/06/17 16:26 Date of admission: 07/04/17 13:07 Primary care physician: Elvi Chester Consults: 07/04/17 13:18 Consult to Occupational Therapy [CONS] Routine Comment: Evaluate, develop and implement POC Reason for Consult: Postoperative rehabilitation Does patient have active BEDREST order?: No Is patient medically & hemodynamically stable?: Yes Patient assessed for mobility or mobilized this visit?: No Consult to Physical Therapy [CONS] Routine Comment: Evaluate, develop and implement POC Reason for Consult: Postoperative rehabilitation Does patient have active BEDREST order?: No Is patient medically & hemodynamically stable?: Yes Patient assessed for mobility or mobilized this visit?: No Consult to Spine Navigator [CONS] [CONS] Routine 07/06/17 10:41 Consult to Senior Procurement Specialist [CONS] Routine Reason for SW Consult: DC planning - VTE Documentation of Mechanical Device: Intermittent pneumatic compression device Labs on day of discharge: Labs from last 24 hours 07/06/17 07/06/17 20:38 17:00 POC Glucose 152 H 122 H - Impressions ITS Impressions Lumbar Spine X-Ray 07/04/17 08:30 IMPRESSION: Posterior lumbar spinal fusion and discectomy of L4-5. Minimal grade 1 anterolisthesis measuring 2 mm. D/ / 07/04/2017 13:15:14 Kalpesh Garcia MD / [email or web address] Interpreting Provider: Kalpesh Garcia MD Lumbar Spine X-Ray 07/07/17 08:18 IMPRESSION: No acute abnormality following L4-5 fusion. D/ / 07/07/2017 10:08:12 Johny Holland MD / [facility] Interpreting Provider: Johny Holland MD - Patient Status Disposition: Transfer Inpatient Rehab Fac Condition: Good Functional capacity at discharge: uses cane/walker Overall status at discharge: patient is progressing back to baseline - Discharge Instructions Follow Up With: Elvi Chester [Primary Care Provider] - Additional Instructions: Discharge Instructions: Lumbar Please call [facility] ([phone]), your Primary Care Physician, or report to the ER if you have any of the following symptoms: Fever greater that 101.5, increased pain/redness/drainage/odor for your incision site or any other concerning symptoms. ACTIVITY * May Shower * No Tub Baths * No lifting greater than 10 pounds * No Smoking * No Swimming * No off Ground Activities (Running, Climbing, Ladders, Horseback Riding) * No Driving * Wear Back Brace when up walking if lumbar fusion done MEDICATIONS: Upon discharge resume your home medications. Take all the medications as prescribed. Take a stool softener if taking narcotic pain medications. Stool softeners are only effective if you drink enough fluids. Drink 6-8 glass of water or fluids a day, unless this is not allowed for another health problem. Despite using stool softeners, if you haven't had a bowel movement in 3 days, please switch to a gentle laxative. Gentle laxatives are sold over the counter. You should have a bowel movement within 24 hours, if not call the office. You will be discharged from the hospital with a prescription for pain medication. You are encouraged to decrease the use of narcotic pain medication as tolerated. Should you require a refill, please call the office. It is best to call 48-72 hours in advance of needing a prescription refill so you don't run out of medication. WOUND CARE: Remove Dressing Tomorrow. Leave incision open to air. Pat dry when you get out of the shower. FOLLOW-UP: Please follow up with your surgeon in the orthopedic clinic in 2 weeks from the day of surgery. References: [employer] (www.apta.org) - Diet and Activity Activity: as per the cardiac rehab, as per physical therapy Diet: advance to your usual diet
[2017-07-07] MEDS: *HR* HYDROcodone/Acet 5/325 mg TABLET PO PRN (13:21)
== END 2017-07-07 14:19 | DRG 460 ==
LOC: SAMDAY 06:15 → 3NENU 13:07
PROVIDERS: ADMIT Orthopaedic Surgery Orthopaedic Surgery of the Spine; ATTEND Orthopaedic Surgery Orthopaedic Surgery of the Spine